=== PATIENT | female | born 1965 | race Caucasian/White ===

== ENCOUNTER → 2024-06-16 12:56 | Outpatient (REF) | payer BC, SELFPAY | LOC: PET 12:56 | PROVIDERS: ATTENDING PHYSICIAN Internal Medicine Hematology & Oncology | DX: C50.412 Malignant neoplasm of upper-outer quadrant of left female breast (principal); C78.02 Secondary malignant neoplasm of left lung | CPT/HCPCS: 78815; A9552 ==